=== PATIENT | male | born 1960 ===

== ENCOUNTER → 2023-01-31 12:43 | Outpatient (BNVA) | payer OTHER, SELFPAY | PROVIDERS: Visit Provider Surgery | DX: Z12.11 Encounter for screening for malignant neoplasm of colon (principal); Z12.12 Encounter for screening for malignant neoplasm of rectum; Z91.89 Other specified personal risk factors, not elsewhere classified | CPT/HCPCS: 99203 ==

== ENCOUNTER 2023-05-30 08:37 | Day surgery (SDC) | payer OTHER, SELFPAY ==
[2023-05-30 09:14] VITALS: BP 148/97; PULSE 72; RESP 18; TEMP 36.5; O2SAT 96; BMI 29.0
[2023-05-30] MEDS: sodium chloride 0.9% 1,000 ML 30 ML IV (09:18)
--- NOTE | 2023-05-30 09:27 | W.PM.OPSFHP ---
Same Day Surgery H&P Indication for Procedure/HPI DATE OF PROCEDURE: May 30, 2023 CHIEF COMPLAINT/INDICATIONFOR SURGICAL PROCEDURE: history of colon polyps PREOP DIAGNOSIS: history of colon polyps PLANNED PROCEDURE: Operation Date: 05/30/23 09:45 Pro[place] Procedures p 93348 colon G0121 screen colon A risk Z12.11(Not Applicable) - Robin Bassett MD Medications/Allergies* Home Medications Medication Instructions Recorded Confirmed Type atorvastatin 10 mg tablet 10 mg PO DAILY 01/31/23 05/28/23 History lisinopril 10 mg tablet 10 mg PO DAILY 01/31/23 05/28/23 History Gymnema Kee 400 mg PO DAILY 05/28/23 05/28/23 History vivvpmgtxnwj-igwhpkin-cvfwhc 1 tab PO DAILY 05/28/23 05/28/23 History tablet (Multivitamin 50 Plus tablet) omega 6-wwr-bur-fish oil 1,200 mg 1 cap PO DAILY 05/28/23 05/28/23 History (144 mg-216 mg) capsule (Fish Oil) organ concentrates 200 mg capsule 200 mg PO DAILY 05/28/23 05/28/23 History Allergies/Adverse Reactions Allergy/AdvReac Type Severity Reaction Status Date / Time No Known Allergies Allergy Unverified 01/31/23 12:55 Pertinent History/Comorbid Conditions* Family History (Updated 01/31/23 @ 12:55 by RAFAEL Ramirez) Heart disease Father Hypertension Father Social History Smoking and tobacco/nicotine status: never used tobacco/nicotine Alcohol intake: never Pertinent Exam Findings alert, oriented x 3, clear to auscultation bilaterally and regular rate & rhythm Recommendations Surgery/Procedure today Coding Level of Care Code Acute Code for Chg Priyank
--- NOTE | 2023-05-30 09:41 | ANES.PREANE2 ---
Pre-Anesthetic Assessment Height/Weight: Height 1.7 m Weight 83.915 kg Temp Pulse Resp BP Pulse Ox O2 Del Method 97.7 F 72 18 148/97 96 Room Air 05/30/23 09:14 05/30/23 09:14 05/30/23 09:14 05/30/23 09:14 05/30/23 09:14 05/30/23 09:14 Preop Diagnosis: history of colon polyps Operation Date: 05/30/23 09:45 Proposed Procedures p [id number] colon G0121 screen colon A risk Z12.11(Not Applicable) - Robin Bassett MD Familial anesthetic complications: None Was Beta Juan Luis taken within 24 hours: N/A Was Clonidine taken within 24 hours: N/A Last intake: Intake Last Liquid Date 05/29/23 Last Liquid Time 18:00 Last Solid Date 05/28/23 Last Solid Time 18:00 Social No alcohol and No tobacco Exam alert, oriented x 3, clear to auscultation bilaterally and regular rate & rhythm Airway Mallampati: Class II Dentition: full CV/HEM Hypertension Metabolic Hyperlipidemia Anesthetic Plan ASA status: 1 Anesthesia: MAC Risk of > 500 ml blood loss (7ml/kg in children): No Medications/Allergies Home Medications Medication Instructions Recorded Confirmed Last Taken Type atorvastatin 10 mg tablet 10 mg PO DAILY 01/31/23 05/28/23 05/28/23 History lisinopril 10 mg tablet 10 mg PO DAILY 01/31/23 05/28/23 05/28/23 History Gymnema Kee 400 mg PO DAILY 05/28/23 05/28/23 05/28/23 History [id number]-obvbqdea-zleyfp 1 tab PO DAILY 05/28/23 05/28/23 05/28/23 History tablet (Multivitamin 50 Plus tablet) omega 0-xla-utp-fish oil 1,200 mg 1 cap PO DAILY 05/28/23 05/28/23 05/28/23 History (144 mg-216 mg) capsule (Fish Oil) organ concentrates 200 mg capsule 200 mg PO DAILY 05/28/23 05/28/23 05/28/23 History Allergies Allergy/AdvReac Type Severity Reaction Status Date / Time No Known Allergies Allergy Unverified 01/31/23 12:55 Current Medications Generic Name Dose Route Start Last Admin Trade Name Freq PRN Reason Stop Dose Admin Sodium Chloride 1,000 mls @ 30 mls/hr 05/30/23 09:00 05/30/23 09:18 Sodium Chloride 0.9% IV 05/31/23 08:59 30 mls/hr .Q24H CASSANDRA Administration PFSH Anesthesia Family History (Updated 01/31/23 @ 12:[address]) Father Heart disease Hypertension Social History (Updated 01/31/23 @ 12:[address]) Smoking and tobacco/nicotine status: never used tobacco/nicotine Alcohol intake: never Data Anesthesia Cardiac Studies: No Data to Display
[2023-05-30 10:23] VITALS: BP 128/81; PULSE 77; RESP 12; TEMP 36.1; O2SAT 92
[2023-05-30 10:30] VITALS: BP 135/86; PULSE 77; RESP 16; O2SAT 96
--- NOTE | 2023-05-30 10:50 | ANE.PACU2 ---
Inpatient post-anesthesia follow up: Airway intact: Yes Vital signs: Temperature 97 F Pulse Rate 77 Respiratory Rate 16 Blood Pressure 135/86 Pulse Oximetry 96 Oxygen Delivery Me thod Room Air Oxygen Flow Rate 3 Fraction of Inspir ed Oxygen Hydration adequate: Yes Nausea and vomiting: No Pain level: 1 Mental status: Baseline
== END 2023-05-30 10:51 | disposition home or self-care (01) ==
PROVIDERS: PCP Nurse Practitioner; Visit Provider Surgery
PROC: 0DJD8ZZ Inspection of Lower Intestinal Tract, Via Natural or Artificial Opening Endoscopic (ICD-10-PCS; CPT 45378; principal; 2023-05-30 09:45)
DX: Z12.11 Encounter for screening for malignant neoplasm of colon (principal); Z86.010 Personal history of colon polyps; I10 Essential (primary) hypertension; E78.5 Hyperlipidemia, unspecified
CPT/HCPCS: 45378; J2704; J7030